=== PATIENT | female | born 1950 | race Hispanic/Latino ===

== ENCOUNTER → 2018-11-11 | Day surgery (SDC) | payer MEDICARE ==
[~2018-11-11] MED LIST: FENTANYL CITRATE/PF 100MCG/2 ML INJ ONE; FLUOXETINE HCL20 M1 PO; FUROSEMIDE40 MG PO; LIDOCAINE HCL 2% LOCAL INJ 5 ML SDV VIAL INJ ONE; METOPROLOL TART25 MG PO; OMEPRAZOLE40 MG PO; PROPOFOL IV EMULSION 10 MG/ML 20 ML VIAL ONE
--- OUTSIDE RECORDS SUMMARY | 2018-11-11 09:50 | XMS REPORT | Clinical Summary ---
Author Author Anibal [facility] Organization [facility] Address Unknown Phone Unavailable Care Team Providers Care Pulmonary Disease Specialist Name Role Phone Michael Morales MD PCP Allergies No Known Allergies Medications End Date Status Medication Sig Dispensed Refills Start Date Active candesartan (ATACAND) 16 Take 16 mg by 0 MG tablet mouth daily. Active furosemide (LASIX) 40 mg Take 40 mg by 0 tablet mouth daily. Active ergocalciferol (VITAMIN Take 50,000 0 D2) 50,000 unit capsule Units by mouth. Active FLUoxetine (PROzac) 20 MG Take 20 mg by 0 capsule mouth daily. 06/20/2018 Discontinued benzonatate (TESSALON) Take 100 mg 0 100 MG capsule by mouth 3 (three) times a day. 06/20/2018 Discontinued nitrofurantoin Take 100 mg 0 (MACRODANTIN) 100 MG by mouth 2 capsule (two) times a day. 06/20/2018 Discontinued metoprolol tartrate Take 50 mg by 0 (LOPRESSOR) 50 mg tablet mouth 2 (two) times a day. 07/20/2018 metoprolol tartrate Take 1 tablet 60 tablet 0 (LOPRESSOR) 25 mg tablet (25 mg total) 9 by mouth 2 (two) times a day for 30 days. 06/25/2018 methylPREDNISolone follow 21 tablet 0 (MEDROL, KWABENA,) 4 mg package 9 tablet directions 07/20/2018 omeprazole 20 mg Take 20 mg by 30 each 5 tablet,delayed release mouth daily 9 (/EC) for 30 days. 07/20/2018 metFORMIN (GLUCOPHAGE) Take 1 tablet 60 tablet 0 500 mg tablet (500 mg 9 total) by mouth 2 (two) times a day with meals for 30 days. 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 UTI (urinary tract infection) 06/13/2018 Encounters Care Team Description Date Type Specialty Eva Alaniz MD Asbury, James F., MD Urinary tract infection without hematuria, site unspecified (Primary Dx); Parainfluenza virus infection; Anemia, unspecified type; Peripheral edema 06/13/2018 [facility] General Internal Medicine - Encounter 06/20/2018 after 11/10/2017 Social History Date Tobacco Use Types Packs/Day Years Used Never Smoker Smokeless Tobacco: Never Used Alcohol Use Drinks/Week oz/Week Comments No Alcohol Habits Answer Date Recorded How often do you have a drink containing alcohol? Never 06/14/2018 How many drinks containing alcohol do you have on Not asked a typical day when you are drinking? How often do you have six or more drinks on one Not asked occasion? Sex Assigned at Date Recorded Not on file Industry Job Start Date Occupation Not on file Not on file Not on file Travel End Travel History Travel Start No recent travel history available. Last Filed Vital Signs Time Taken Vital Sign Reading 06/20/2018 4:22 PM [facility] Blood Pressure 137/64 06/20/2018 4:22 PM [facility] Pulse 77 06/20/2018 4:22 PM [facility] Temperature 35.8 C (96.5 F) 06/20/2018 4:22 PM [facility] Respiratory Rate 16 06/20/2018 4:22 PM [facility] Oxygen Saturation 95% - Inhaled Oxygen - Concentration 06/16/2018 1:03 PM [facility] Weight 110 kg (242 lb 9.6 oz) - Height - - Body Mass Index - Plan of Treatment Health Maintenance Due Date Last Done Comments BREAST CANCER SCREENING 10/30/1999 COLONOSCOPY SCREENING 10/30/1999 SHINGLES VACCINES (#1) 10/30/1999 65+ PNEUMOCOCCAL VACCINE 2014 (1 of 2 - PCV13) INFLUENZA VACCINE 11/25/2018 Procedures Comments Procedure Name Priority Date/Time Associated Diagnosis POC GLUCOSE Routine 06/20/2018 1:24 PM [facility] POC GLUCOSE Routine 06/20/2018 9:40 AM [facility] POC GLUCOSE Routine 06/19/2018 9:49 PM [facility] POC GLUCOSE Routine 06/19/2018 1:31 PM [facility] XR HIP 2-3 VIEWS LEFT Routine 06/19/2018 11:18 AM [facility] POC GLUCOSE Routine 06/19/2018 8:13 AM [facility] POC GLUCOSE Routine 06/18/2018 9:52 PM [facility] POC GLUCOSE Routine 06/18/2018 5:[address] [facility] [address] ABDOMEN PELVIS W WO Routine 06/18/2018 CONTRAST 4:04 PM [facility] POC GLUCOSE Routine 06/18/2018 1:08 PM [facility] US DUPLEX VENOUS LOWER Routine 06/18/2018 EXTREMITY REFLUX 10:22 AM [facility] BILATERAL POC GLUCOSE Routine 06/18/2018 8:28 AM [facility] ESTIMATED GFR Routine 06/18/2018 4:00 AM [facility] BASIC METABOLIC PANEL Routine 06/18/2018 4:00 AM [facility] HC COMPLETE BLD COUNT Routine 06/18/2018 W/AUTO DIFF 4:00 AM [facility] POC GLUCOSE Routine 06/17/2018 9:12 PM [facility] POC GLUCOSE Routine 06/17/2018 5:17 PM [facility] NM MYOCARDIAL PERFUSION Routine 06/17/2018 STRESS REST 2 DAY 2:44 PM [facility] CV STRESS TEST NUCLEAR Routine 06/17/2018 CARDIO 2:00 PM [facility] POC GLUCOSE Routine 06/17/2018 12:19 PM [facility] POC GLUCOSE Routine 06/17/2018 8:16 AM [facility] ESTIMATED GFR Routine 06/17/2018 4:00 AM [facility] PHOSPHORUS LEVEL Routine 06/17/2018 4:00 AM [facility] MAGNESIUM LEVEL Routine 06/17/2018 4:00 AM [facility] BASIC METABOLIC PANEL Routine 06/17/2018 4:00 AM [facility] POC GLUCOSE Routine 06/16/2018 5:07 PM [facility] ECHOCARDIOGRAM 2D Routine 06/16/2018 COMPLETE W MMODE SPECTRAL 2:30 PM [facility] COLOR DOPPLER ([id number]) US RENAL Routine 06/16/2018 10:33 AM [facility] HEMOGLOBIN A1C Routine 06/16/2018 9:00 AM [facility] ESTIMATED GFR Routine 06/16/2018 8:49 AM [facility] BASIC METABOLIC PANEL Routine 06/16/2018 8:49 AM [facility] CORTISOL LEVEL, AM Routine 06/16/2018 3:45 AM [facility] CYCLIC CITRULLINATED Routine 06/15/2018 PEPTIDE AB, IGG 6:00 PM [facility] SEDIMENTATION RATE Routine 06/15/2018 6:00 PM [facility] RHEUMATOID FACTOR Routine 06/15/2018 6:00 PM [facility] C-REACTIVE PROTEIN Routine 06/15/2018 6:00 PM [facility] SADIE Routine 06/15/2018 6:00 PM [facility] RETICULOCYTE COUNT Routine 06/15/2018 5:00 AM [facility] B NATRIURETIC PEPTIDE Routine 06/15/2018 5:00 AM [facility] ESTIMATED GFR Routine 06/15/2018 4:00 AM [facility] FOLATE LEVEL Routine 06/15/2018 4:00 AM [facility] VITAMIN B12 LEVEL Routine 06/15/2018 4:00 AM [facility] TOTAL IRON BINDING Routine 06/15/2018 CAPACITY 4:00 AM [facility] FERRITIN LEVEL Routine 06/15/2018 4:00 AM [facility] T4, FREE Routine 06/15/2018 4:00 AM [facility] PHOSPHORUS LEVEL Routine 06/15/2018 4:00 AM [facility] MAGNESIUM LEVEL Routine 06/15/2018 4:00 AM [facility] BASIC METABOLIC PANEL Routine 06/15/2018 4:00 AM [facility] THYROID STIMULATING Routine 06/15/2018 HORMONE 4:00 AM [facility] ESTIMATED GFR Routine 06/14/2018 3:43 AM [facility] PHOSPHORUS LEVEL Routine 06/14/2018 3:43 AM [facility] MAGNESIUM LEVEL Routine 06/14/2018 3:43 AM [facility] HC COMPLETE BLD COUNT Routine 06/14/2018 W/AUTO DIFF 3:43 AM [facility] BASIC METABOLIC PANEL Routine 06/14/2018 3:43 AM [facility] B NATRIURETIC PEPTIDE Routine 06/14/2018 3:43 AM [facility] TROPONIN Timed 06/13/2018 9:45 PM [facility] LACTIC ACID LEVEL, SEPSIS Timed 06/13/2018 - NOW AND REPEAT 2X EVERY 9:45 PM [facility] 3 HOURS GRAM STAIN STAT 06/13/2018 7:20 PM [facility] URINE CULTURE STAT 06/13/2018 7:20 PM [facility] ECG 12-LEAD STAT 06/13/2018 6:53 PM [facility] XR CHEST 1 VW STAT 06/13/2018 6:49 PM [facility] ESTIMATED GFR STAT 06/13/2018 6:30 PM [facility] PARTIAL THROMBOPLASTIN STAT 06/13/2018 TIME (PTT) 6:30 PM [facility] PROTHROMBIN TIME WITH INR STAT 06/13/2018 6:30 PM [facility] URINALYSIS SCREEN AND STAT 06/13/2018 MICROSCOPY, WITH REFLEX 6:30 PM [facility] TO CULTURE B NATRIURETIC PEPTIDE STAT 06/13/2018 6:30 PM [facility] TROPONIN Timed 06/13/2018 6:30 PM [facility] TROPONIN STAT 06/13/2018 6:30 PM [facility] LACTIC ACID LEVEL, SEPSIS Timed 06/13/2018 - NOW AND REPEAT 2X EVERY 6:30 PM [facility] 3 HOURS LACTIC ACID LEVEL, SEPSIS STAT 06/13/2018 - NOW AND REPEAT 2X EVERY 6:30 PM [facility] 3 HOURS MAGNESIUM LEVEL STAT 06/13/2018 6:30 PM [facility] PHOSPHORUS LEVEL STAT 06/13/2018 6:30 PM [facility] COMPREHENSIVE METABOLIC STAT 06/13/2018 PANEL 6:30 PM [facility] HC COMPLETE BLD COUNT STAT 06/13/2018 W/AUTO DIFF 6:30 PM [facility] RESPIRATORY PATHOGEN Routine 06/13/2018 PANEL 6:30 PM [facility] ECG ED PRELIMINARY Routine 06/13/2018 INTERPRETATION 5:52 PM [facility] XR CHEST 1 VW PORTABLE STAT 06/13/2018 5:26 PM [facility] after 11/10/2017 Results * POC glucose (06/20/2018 1:24 PM [facility]) Only the most recent of 14 results within the time period is included. POC glucose 181 (H) 65 - 99 mg/dL [facility] Comment: [facility] Notified RN HOSPITAL Meter ID: [id number] Offset Printer: Asher Castillo Specimen Performing Organization Address City/State/Zipcode Phone Number [facility] DEPARTMENT OF [address] [place] [address] PATHOLOGY AND GENOMIC MEDICINE [facility] [address] [place], [place] [id number] HOSPITAL * XR Hip 2-3 View Left (06/19/2018 11:18 AM [facility]) Specimen Narrative Performed At Study:XR HIP 2-3 VIEWS LEFT [facility] History:Hip painchronicinitial exam COMPARISON:None. IMPRESSION: 2 views of the left hip. Mineralization is normal. No acute fracture or dislocation. The joint space is maintained but with some mild spurring from degenerative change. Overlying soft tissues unremarkable. [id number] Procedure Note Hm Interface, Radiology Results Incoming - 06/19/2018 11:58 AM [facility] Study:XR HIP 2-3 VIEWS LEFT History:Hip pain chronic initial exam COMPARISON:None. IMPRESSION: 2 views of the left hip. Mineralization is normal. No acute fracture or dislocation. The joint space is maintained but with some mild spurring from degenerative change. Overlying soft tissues unremarkable. [id number] Performing Organization Address City/State/Zipcode Phone Number [facility] [address] [place] [address] * CT Abdomen Pelvis W Wo Contrast (06/18/2018 4:04 PM [facility]) Specimen Narrative Performed At EXAMINATION:CT ABDOMEN PELVIS W WO CONTRAST [facility] CLINICAL HISTORY:renal mass on US COMPARISON:US renal dated 06/16/2018 TECHNIQUE:CT of the abdomen and pelvis with and without intravenous contrast. CT imaging was performed with iterative reconstruction techniques and/or automated exposure control to reduce radiation dose. FINDINGS: LOWER THORAX:The visualized heart and pericardium appear unremarkable. There is bibasilar subsegmental atelectasis/scarring, left greater than right.There is no pleural effusion. HEPATOBILIARY:The liver appears unremarkable. There is a large gallstone within the gallbladder lumen without evidence of acute cholecystitis. There is no biliary ductal dilatation. SPLEEN:No splenomegaly. PANCREAS:No focal masses or ductal dilation. ADRENALS:No adrenal nodules. KIDNEYS:There is a 1.3 x 1.1 cm enhancing mass arising from the anterosuperior cortex of the right kidney. It demonstrates an internal attenuation of approximately 23 Hounsfield units on noncontrast images, which increases to approximately 72 Hounsfield units on the medullary phase and 57 Hounsfield units on the delayed phase. No additional There is no nephroureterolithiasis.There is no hydroureter/hydronephrosis. There is symmetric excretion of contrast on the delayed phase images. GI TRACT:There is a large, mixed sliding-type and parapharyngeal hernia with the majority of the stomach lying within the thorax. The visualized portions of the bowel demonstrate no distention, wall thickening, or mural pneumatosis. PERITONEUM/RETROPERITONEUM:There is no free intraperitoneal air. There is no free fluid or focal drainable collection. LYMPHATIC: There is no lymphadenopathy. VESSELS: There is mild atherosclerotic calcification of the arterial vasculature. There is no evidence of aneurysm or dissection. The celiac trunk and its main branches are patent. 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 The inferior mesenteric artery appears patent. The bilateral renal arteries appear patent. BONES AND SOFT TISSUES:There is demineralization and degenerative change of the visualized skeleton, with note made of Schmorl's nodes which erode into the superior endplates of the T12 and L1 vertebral bodies. There is no definite acute or suspicious osseous abnormality. There is a small fat-containing periumbilical hernia. IMPRESSION: Right renal mass (1.3 x 1.1 cm), concerning for renal cell carcinoma. Large hiatal hernia. [facility]-[id number] Procedure Note [facility], Radiology Results Incoming - 06/18/2018 4:58 PM [facility] EXAMINATION: CT ABDOMEN PELVIS W WO CONTRAST CLINICAL HISTORY: renal mass on US COMPARISON: US renal dated 06/16/2018 TECHNIQUE: CT of the abdomen and pelvis with and without intravenous contrast. CT imaging was performed with iterative reconstruction techniques and/or automated exposure control to reduce radiation dose. FINDINGS: LOWER THORAX: The visualized heart and pericardium appear unremarkable. There is bibasilar subsegmental atelectasis/scarring, left greater than right. There is no pleural effusion. HEPATOBILIARY: The liver appears unremarkable. There is a large gallstone within the gallbladder lumen without evidence of acute cholecystitis. There is no biliary ductal dilatation. SPLEEN: No splenomegaly. PANCREAS: No focal masses or ductal dilation. ADRENALS: No adrenal nodules. KIDNEYS: There is a 1.3 x 1.1 cm enhancing mass arising from the anterosuperior cortex of the right kidney. It demonstrates an internal attenuation of approximately 23 Hounsfield units on noncontrast images, which increases to approximately 72 Hounsfield units on the medullary phase and 57 Hounsfield units on the delayed phase. No additional There is no nephroureterolithiasis. There is no hydroureter/hydronephrosis. There is symmetric excretion of contrast on the delayed phase images. GI TRACT: There is a large, mixed sliding-type and parapharyngeal hernia with the majority of the stomach lying within the thorax. The visualized portions of the bowel demonstrate no distention, wall thickening, or mural pneumatosis. PERITONEUM/RETROPERITONEUM: There is no free intraperitoneal air. There is no free fluid or focal drainable collection. LYMPHATIC: There is no lymphadenopathy. VESSELS: There is mild atherosclerotic calcification of the arterial vasculature. There is no evidence of aneurysm or dissection. The celiac trunk and its main branches are patent. 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 The inferior mesenteric artery appears patent. The bilateral renal arteries appear patent. BONES AND SOFT TISSUES: There is demineralization and degenerative change of the visualized skeleton, with note made of Schmorl's nodes which erode into the superior endplates of the T12 and L1 vertebral bodies. There is no definite acute or suspicious osseous abnormality. There is a small fat-containing periumbilical hernia. IMPRESSION: Right renal mass (1.3 x 1.1 cm), concerning for renal cell carcinoma. Large hiatal hernia. [facility]-[id number] Performing Organization Address City/State/Zipcode Phone Number [facility] [address] [place] [address] * Us duplex venous lower extremity reflux (06/18/2018 10:22 AM [facility]) Specimen Narrative Performed At [facility] Vascular Ultrasound Laboratory Lower Extremity Venous Report [id number] [place] [address] Pat.Name:Elieesr GLEASON.ID:[id number] .Date: 06/18/2018 Refer.MD:LILLIE DAN MD Exam Time: 9:34:00 AMStudy Type:LE Venous Weight:242lb DOBAge:1950,67Y Sex: FEMALESonogrphr: Elvia Chery RVT Pat. Stat.:Inpatient Room:[address] TapeVol: JPercy, CPT - 4: [address] Echo Event ID:[id number] Order ID:[id number] Reason for Study:Evaluation for venous insufficiency. LE swelling and pain. Procedures:Colorflow, Grayscale/2D, Pulsed wave Doppler Race:C SUMMARY: * Normal Reflux Criteria:< 0.5 seconds * Abnormal Reflux Criteria:> or equal to 0.5 seconds DUPLEX SCAN OBSERVATIONS Deep VeinsSuperficial Veins RightLeft RightLeft GSV (prox) NormalNormal CFV Normal Normal (above knee) Femoral Normal Normal GSV (dist) Normal Normal Profunda Normal Normal (below knee) Popliteal Normal Normal PT (prox) Normal NormalSSV Normal Normal PT (dist) Normal Normal Peroneal Normal Normal Gastrocs Normal Normal RIGHT:There is normal compressibility with no evidence of echogenic material noted within the lumen of the visualized veins. Colorflow and Doppler signals are normal. LEFT: There is normal compressibility with no evidence of echogenic material noted within the lumen of the visualized veins. Colorflow and Doppler signals are normal. PRELIMINARY FINDINGS 1. Normal venous duplex exam of the visualized veins. 2. No evidence of reflux in bilateral lower extremities. 3. See diagram for measurements. PHYSICIAN INTERPRETATION 1. Venous examination of the both lower extremities demonstrated no evidence of venous thrombosis in the visualized veins.2. Normal compressibility and augmentation of all veins visualized. 3. No evidence of venous reflux, Bilateral. MEASUREMENTS: REFLUX Right SF [place] SF [place] G0.64 cm Left SF [place] G0.63 cm Right Thigh Prox Thigh Prox GSV 0.39 cm Left Thigh Prox Thigh Prox GSV 0.36 cm Right Thigh Mid Thigh Mid GSV D0.38 cm Left Thigh Mid Thigh Mid GSV D0.26 cm Right Thigh Dist Thigh Dist GSV 0.51 cm Left Thigh Dist Thigh Dist GSV 0.51 cm Right Knee Knee GSV Diam 0.56 cm Left Knee Knee GSV Diam 0.39 cm Right Calf Prox Calf Prox GSV D0.34 cm Left Calf Prox Calf Prox GSV D0.22 cm Right Calf Mid Calf Mid GSV Di0.35 cm Left Calf Mid Calf Mid GSV Di0.33 cm Right Calf Dist Calf Dist GSV D0.39 cm Left Calf Dist Calf Dist GSV D0.35 cm Right Prox Prox SSV Diam 0.25 cm Left Prox Prox SSV Diam 0.11 cm Signed 06/18/2018 02:00 PM Sandro Ennis MD, FACS, RPVI Procedure Note Interface, Radiology Results In - 06/18/2018 2:01 PM [facility] Vascular Ultrasound Laboratory Lower Extremity Venous Report [id number] [place] [address] Pat.Name: JAKY GLEASON Pat.ID: [id number] .Date: 06/18/2018 Refer.MD: LILLIE DAN MD Exam Time: 9:34:00 AM Study Type:LE Venous Weight: 242lb Age: 7 1950,67Y Sex: FEMALE Sonogrphr: Elvia Chery RVT Pat. Stat.:Inpatient Room: [address] Vol: JJ, CPT - 4: 48573 Echo Event ID:[id number] Order ID: [id number] Reason for Study:Evaluation for venous insufficiency. LE swelling and pain. Procedures:Colorflow, Grayscale/2D, Pulsed wave Doppler Race: C SUMMARY: * Normal Reflux Criteria: < 0.5 seconds * Abnormal Reflux Criteria: > or equal to 0.5 seconds DUPLEX SCAN OBSERVATIONS Deep Veins Superficial Veins Right Left Right Left GSV (prox) Normal Normal CFV Normal Normal (above knee) Femoral Normal Normal GSV (dist) Normal Normal Profunda Normal Normal (below knee) Popliteal Normal Normal PT (prox) Normal Normal SSV Normal Normal PT (dist) Normal Normal Peroneal Normal Normal Gastrocs Normal Normal RIGHT:There is normal compressibility with no evidence of echogenic material noted within the lumen of the visualized veins. Colorflow and Doppler signals are normal. LEFT: There is normal compressibility with no evidence of echogenic material noted within the lumen of the visualized veins. Colorflow and Doppler signals are normal. PRELIMINARY FINDINGS 1. Normal venous duplex exam of the visualized veins. 2. No evidence of reflux in bilateral lower extremities. 3. See diagram for measurements. PHYSICIAN INTERPRETATION 1. Venous examination of the both lower extremities demonstrated no evidence of venous thrombosis in the visualized veins. 2. Normal compressibility and augmentation of all veins visualized. 3. No evidence of venous reflux, Bilateral. MEASUREMENTS: REFLUX Right SF [place] SF [place] G 0.64 cm Left SF [place] SF [place] G 0.63 cm Right Thigh Prox Thigh Prox GSV 0.39 cm Left Thigh Prox Thigh Prox GSV 0.36 cm Right Thigh Mid Thigh Mid GSV D 0.38 cm Left Thigh Mid Thigh Mid GSV D 0.26 cm Right Thigh Dist Thigh Dist GSV 0.51 cm Left Thigh Dist Thigh Dist GSV 0.51 cm Right Knee Knee GSV Diam 0.56 cm Left Knee Knee GSV Diam 0.39 cm Right Calf Prox Calf Prox GSV D 0.34 cm Left Calf Prox Calf Prox GSV D 0.22 cm Right Calf Mid Calf Mid GSV Di 0.35 cm Left Calf Mid Calf Mid GSV Di 0.33 cm Right Calf Dist Calf Dist GSV D 0.39 cm Left Calf Dist Calf Dist GSV D 0.35 cm Right Prox Prox SSV Diam 0.25 cm Left Prox Prox SSV Diam 0.11 cm Signed 06/18/2018 02:00 PM Sandro Ennis MD, FACS, RPVI Performing Organization Address City/State/Zipcode Phone Number [facility] [address] [place] [address] * Estimated GFR (06/18/2018 4:00 AM [facility]) Only the most recent of 6 results within the time period is included. [facility] Estimated GFR >=90 mL/min/1.73 m2 [facility] Comment: [facility] rpretation G1 >=90 Normal or high G2 60-89Mildly decreased H5e30-99 Mildly to moderately decreased Y8l54-66 Moderately to severely decreased G4 15-29Severely decreased G5 <15Kidney failure The eGFR was calculated using the Chronic Kidney Disease Epidemiology Collaboration (CKD-EPI) equation. Interpretation is based on recommendations of the National Kidney Foundation-Kidney Disease Outcomes Quality Initiative (NKF-KDOQI) published in 2014. Specimen Plasma specimen Performing Organization Address City/[facility]/Zipcode Phone Number [facility] DEPARTMENT OF [address] [place] [id number] PATHOLOGY AND GENOMIC MEDICINE [address] * CBC with platelet and differential (06/18/2018 4:00 AM [facility]) Only the most recent of 3 results within the time period is included. WBC 4.75 4.50 - 11.00 k/uL [facility] RBC 4.02 (L) 4.20 - 5.50 m/uL [facility] HGB 11.1 (L) 12.0 - 16.0 g/dL [facility] HCT 36.6 (L) 37.0 - 47.0 % [facility] MCV 91.0 82.0 - 100.0 fL [facility] MCH 27.6 27.0 - 34.0 pg [facility] MCHC 30.3 (L) 31.0 - 37.0 g/dL [facility] RDW - SD 43.7 37.0 - 55.0 fL [facility] MPV 10.9 8.8 - 13.2 fL [facility] Platelet count 235 150 - 400 k/uL [facility] Nucleated RBC 0.00 /100 WBC [facility] Neutrophils 54.9 39.0 - 69.0 % [facility] Lymphocytes 29.1 25.0 - 45.0 % [facility] Monocytes 13.9 (H) 0.0 - 10.0 % [facility] Eosinophils 1.3 0.0 - 5.0 % [facility] Basophils 0.8 0.0 - 1.0 % [facility] Immature 0.0Comment: "Immature 0.0 - 1.0 % [facility] granulocytes granulocytes" (promyelocytes, [facility] myelocytes, metamyelocytes) HOSPITAL Specimen Blood Performing Organization Address City/[facility]/Zipcode Phone Number [facility] DEPARTMENT OF [address] [place] [id number] PATHOLOGY AND GENOMIC MEDICINE [address] * Basic metabolic panel (06/18/2018 4:00 AM [facility]) Only the most recent of 5 results within the time period is included. Sodium 141 135 - 148 mEq/L [facility] Potassium 4.1 3.5 - 5.0 mEq/L [facility] Chloride 104 98 - 112 mEq/L [facility] CO2 26 24 - 31 mEq/L [facility] Anion gap 11@ANIO 7 - 15 mEq/L [facility] BUN 6 (L) 8 - 23 mg/dL [facility] Creatinine 0.39 (L) 0.50 - 0.90 mg/dL [facility] Glucose 137 (H) 65 - 99 mg/dL [facility] Calcium 9.8 8.8 - 10.2 mg/dL [facility] Specimen Plasma specimen Performing Organization Address City/State/Zipcode Phone Number [facility] DEPARTMENT OF [address] [place] [address] PATHOLOGY AND GENOMIC MEDICINE [address] * Nm myocardial perfusion (06/17/2018 2:44 PM [facility]) Specimen Narrative Performed At [facility] Nuclear Cardiology and Cardiac CT [address] [place] [address] Myocardial Perfusion Imaging Report Stress ECG tracings are available in [employer], [employer] and [employer] All ECG interpretations are included in this report Pat.Name:Elieser GLEASON.ID:[id number] .Date: 06/17/2018 Refer.MD:LILLIE DAN MD Exam Time: 2:44:00 PM Study Type:Myocardial Perfusion Imaging Height:63inBSA: 2.1 m2 DOBAge:1950,67YSex: FEMALE BP:122/59HR: 85 bpm Nuclear Tech:JAYLA Maya, JORGE(N) Pat. Stat.:Inpatient Room:[id number] Event ID:[id number] Order ID:[id number] Reason for Study:CAD Risk, Intermediate, Asymptomatic Procedures:High Dose Stress Only Risk Factors:Diabetes, Hypertension, Obesity Clinical Symptoms:Regadenoson Physical Exam:S1, S2 SUMMARY: SCINTIGRAPHIC RESULTS Perfusion Defect Size (% LV) 0 % Total 0 % Ischemia 0 % Scar Left Ventricular Perfusion Results There is normal tracer distribution throughout the myocardium during stress. Gated SPECT Results The post-stress left ventricular ejection fraction is >80 % with normal regional wall motion and left ventricular thickening.Left ventricular end-diastolic volume is 71ml; end-systolic volume is6 ml. The left ventricle is of normal size at stress.The right ventricle is of normal size with normal wall motion. Conclusion Normal regadenoson Tc-99m tetrofosmin myocardial perfusion study. The left ventricular ejection fraction is normal. Comments Patients with a normal stress myocardial perfusion study have a low (< 1%) annual risk of cardiac or nonfatal myocardial infarction. Study Quality/Artifacts The study quality is good. Comparison to Previous Study None available. STRESS: Baseline Vital Signs:Intervention: Regadenoson 0.4mg/5ml IV over 10 seconds followed by radiotracer injection and 5ml saline flush HR:85 BP:122/59 Stress Test Results: Target HR: 129 Symptoms and Complications: Terminated: As per Regadenoson protocol Symptoms:Shortness of breath Signed 06/17/2018 04:21 PM Rafael Morris MD Procedure Note Interface, Radiology Results In - 06/17/2018 4:21 PM [facility] Nuclear Cardiology and Cardiac CT [address] [address] Myocardial Perfusion Imaging Report Stress ECG tracings are available in [employer], [employer] and [employer] All ECG interpretations are included in this report Pat.Name: JAKY GLEASON Shannon.ID: [id number] .Date: 06/17/2018 Refer.MD: LILLIE DAN MD Exam Time: 2:44:00 PM Study Type:Myocardial Perfusion Imaging Height: 63in BSA: 2.1 m2 Age: 7 1950,67Y Sex: FEMALE BP: 122/59 HR: 85 bpm Nuclear Tech:JAYLA Maya, JORGE(N) Shannon. Stat.:Inpatient Room: [facility] Nuclear Event ID:[id number] Order ID: [id number] Reason for Study:CAD Risk, Intermediate, Asymptomatic Procedures:High Dose Stress Only Risk Factors:Diabetes, Hypertension, Obesity Clinical Symptoms:Regadenoson Physical Exam:S1, S2 SUMMARY: SCINTIGRAPHIC RESULTS Perfusion Defect Size (% LV) 0 % Total 0 % Ischemia 0 % Scar Left Ventricular Perfusion Results There is normal tracer distribution throughout the myocardium during stress. Gated SPECT Results The post-stress left ventricular ejection fraction is >80 % with normal regional wall motion and left ventricular thickening. Left ventricular end-diastolic volume is 71ml; end-systolic volume is 6 ml. The left ventricle is of normal size at stress. The right ventricle is of normal size with normal wall motion. Conclusion Normal regadenoson Tc-99m tetrofosmin myocardial perfusion study. The left ventricular ejection fraction is normal. Comments Patients with a normal stress myocardial perfusion study have a low (< 1%) annual risk of cardiac or nonfatal myocardial infarction. Study Quality/Artifacts The study quality is good. Comparison to Previous Study None available. STRESS: Baseline Vital Signs: Intervention: Regadenoson 0.4mg/5ml IV over 10 seconds followed by radiotracer injection and 5ml saline flush HR: 85 BP: 122/59 Stress Test Results: Target HR: 129 Symptoms and Complications: Terminated: As per Regadenoson protocol Symptoms: Shortness of breath Signed 06/17/2018 04:21 PM Rafael Morris MD Performing Organization Address [facility]/Zipcode Phone Number [facility] [address] [place] [address] * Cv stress test (06/17/2018 2:00 PM [facility]) Resting HR 87 [facility] Resting BP 122 [facility] Peak MET 1.0 [facility]USE Achieved Protocol Name REGSTEVE [facility] MUSE Time in 00:01:00 [facility] MUSE Exercise Phase Max Systolic BP 147 [facility] MUSE Max Diastolic 74 [facility] MUSE BP Max Heart Rate 100 [facility] MUSE Max Predicted 152 [facility] MUSE Heart Rate Target HR (220 - Age)*100% [facility] MUSE Formula Test Indication chest pain [facility] MUSE Arrhy During Ex [facility] ECG Interp [facility] MUSE Before EX ECG Interp [facility] MUSE During Ex Ex Summary [facility] MUSE Comment Overall HR [facility] Response to Exercise Overall BP [facility] M[facility] Response To Exercise Reason for [facility] MUSE Termination Stress Test -Waveform interpreted in [facility] MUSE Impression report associated with image study. No interpretation is provided as part of this Stress ECG report.-Electronically Signed By Hiral UREÑA, Mundo ([id number]), publications editor Bianca Reagan ([id number]) on 06/17/2018 4:09:34 PM Specimen Narrative Performed At Performing Organization Address [facility] Phone Number [facility] [address] [place] [address] * Phosphorus level (06/17/2018 4:00 AM [facility]) Only the most recent of 4 results within the time period is included. Phosphorus 2.9 2.4 - 4.5 mg/dL [facility] Specimen Plasma specimen Performing Organization Address [facility]/Zipcode Phone Number [address] [address] PATHOLOGY AND GENOMIC MEDICINE [address] * Magnesium level (06/17/2018 4:00 AM [facility]) Only the most recent of 4 results within the time period is included. Magnesium 1.7 1.6 - 2.4 mg/dL [facility] Specimen Plasma specimen Performing Organization Address City/State/Zipcode Phone Number [facility] DEPARTMENT OF [address] [place] [address] PATHOLOGY AND GENOMIC MEDICINE [facility] [address] [place] [address] * Echocardiogram complete w contrast and 3D if needed (06/16/2018 2:30 PM [facility]) Specimen Narrative Performed At [facility] Echocardiography Report [address] [facility], [place] [address] Pat.Name:Elieser GLEASON.ID:[id number] .Date: 06/16/2018 Refer.MD:RICH YUEN MD Exam Time: 1:38:00 PMStudy Type:Routine Echo Height:63inWeight:190lb BSA: 1.89 m2 DOBAge:1950,67Y Sex: FEMALEBP:139/66 HR:90 bpmSonogrphr: ALESHIA Rodríguez Pat. Stat.:Inpatient Room:[facility] Study Status:Final Echo Event ID:[id number] Order ID:[id number] Reason for Study:Chf with low ejection fraction Procedures:2D Echo, Colorflow Doppler, Strain, Portable Race:C SUMMARY: LV EF is normal. Estimated EF is 65-69%. High cardiac output. LA volume is severely enlarged. Mild tricuspid regurgitation. Estimated PA systolic pressure is 32 mmHg, assuming a mean RAP of 5 mmHg. FINDINGS: LV: LV size is normal. LV EF is normal. Overall wall motion is normal.Estimated EF is 65-69% Normal GLS at -22% RV: RV size is normal. RV systolic function is normal. LA: LA volume is severely enlarged. RA: RA volume is enlarged. AO: Aortic root diameter is normal. SHELDON: No pericardial effusion. AV: No structural AV abnormalities noted. MV: Dilated annulus A trace of mitral regurgitation. PV: No structural PV abnormalities noted. TV: No structural TV abnormalities noted. Mild tricuspid regurgitation Rowe: LV relaxation is reduced, appropriate for age. LV filling pressureis normal. Other:Estimated PA systolic pressure is 32 mmHg, assuming a mean RAPof 5 mmHg. MEASUREMENTS: 2D Parasternal [place] LVOT 2.2 cmLA Ds2.9 cm LVIDd3.9 cmIndex2.1 cm/m Ao An2.4 cm LVIDs2.4 cmAo Rtd 3.3 cm Index1.8 cm/m LV%fs 39.8 % LV Vqpt657.9 g(87-129) IVSd 1.1 cmLVM Index 71.9 g/m2 LVPWd1 cmRWT0.5 LA Sng Plane LA Area 31.1 cm2(8.8-23.4) LA Vol 119.8 ml Index63.4 ml/m LA LngAx 6.6 cm DOPPLER LVOT Stroke Vol LVOT 2.2 cmLVOT CO8 l/min LVOT TVI25.1 cmLVOT CI4.2 l/m/m2 LVOT Tm297 nytrBA30 bpm LVOT SV 95.4 ml Signed 06/16/2018 03:10 PM Silvano Kent MD Procedure Note Interface, Radiology Results In - 06/16/2018 3:11 PM [facility] Echocardiography Report [address] [place] [address], [address]Name: JAKY GLEASON.ID: [id number] .Date: 06/16/2018 Refer.MD: RICH YUEN MD Exam Time: 1:38:00 PM Study Type:Routine Echo Height: 63in Weight: 190lb BSA: 1.89 m2 Age: 7 1950,67Y Sex: FEMALE BP: 139/66 HR: 90 bpm Sonogrphr: Mackenzie Sim, [facility] Pat. Stat.:Inpatient Room: J812 Study Status:Final Echo Event ID:[id number] Order ID: [id number] Reason for Study:Chf with low ejection fraction Procedures:2D Echo, Colorflow Doppler, Strain, Portable Race: C SUMMARY: LV EF is normal. Estimated EF is 65-69%. High cardiac output. LA volume is severely enlarged. Mild tricuspid regurgitation. Estimated PA systolic pressure is 32 mmHg, assuming a mean RAP of 5 mmHg. FINDINGS: LV: LV size is normal. LV EF is normal. Overall wall motion is normal. Estimated EF is 65-69% Normal GLS at -22% RV: RV size is normal. RV systolic function is normal. LA: LA volume is severely enlarged. RA: RA volume is enlarged. AO: Aortic root diameter is normal. SHELDON: No pericardial effusion. AV: No structural AV abnormalities noted. MV: Dilated annulus A trace of mitral regurgitation. PV: No structural PV abnormalities noted. TV: No structural TV abnormalities noted. Mild tricuspid regurgitation Rowe: LV relaxation is reduced, appropriate for age. LV filling pressure is normal. Other: Estimated PA systolic pressure is 32 mmHg, assuming a mean RAP of 5 mmHg. MEASUREMENTS: 2D Parasternal [place] LVOT 2.2 cm LA Ds 2.9 cm LVIDd 3.9 cm Index 2.1 cm/m Ao An 2.4 cm LVIDs 2.4 cm Ao Rtd 3.3 cm Index 1.8 cm/m LV%fs 39.8 % LV Mass 135.9 g (87-129) IVSd 1.1 cm LVM Index 71.9 g/m2 LVPWd 1 cm RWT 0.5 LA Sng Plane LA Area 31.1 cm2 (8.8-23.4) LA Vol 119.8 ml Index 63.4 ml/m LA LngAx 6.6 cm DOPPLER LVOT Stroke Vol LVOT 2.2 cm LVOT CO 8 l/min LVOT TVI 25.1 cm LVOT CI 4.2 l/m/m2 LVOT Tm 297 msec HR 84 bpm LVOT SV 95.4 ml Signed 06/16/2018 03:10 PM Silavno Kent MD Performing Organization Address City/State/Zipcode Phone Number [facility] [address] [place] [address] * US Renal (06/16/2018 10:33 AM [facility]) Specimen Narrative Performed At EXAMINATION:US RENAL RADIANT CLINICAL HISTORY:UTIuncomplicated TECHNIQUE: Sonographic evaluation of the kidneys and bladder was performed with grayscale, color-flow, and spectral analysis. COMPARISON:None. FINDINGS: A 1.6 cm rounded hyperechoic mass is noted within the right kidney. However, no vascularity was detected centrally within this lesion. The kidneys are normal in size and echogenicity. There is no evidence of renal calculi or hydronephrosis. The renal pelves are prominent bilaterally. The right kidney measures 10.7 x 5.0 x 5.3 cm. The left kidney measures 10.5 x 5.5 x 6.0 cm. The urinary bladder is unremarkable. IMPRESSION: Nonspecific 1.6 cm hyperdense mass within the right kidney. This suggestive of a hemorrhagic or proteinaceous cyst given the absence of internal vascularity. However, given its appearance, underlying malignancy is not excluded. Recommend additional imaging with contrast-enhanced CT versus MRI for further evaluation. This may ultimately require tissue diagnosis. [id number] Procedure Note Interface, Radiology Results Incoming - 06/16/2018 1:02 PM [facility] EXAMINATION: US RENAL CLINICAL HISTORY: UTI uncomplicated TECHNIQUE: Sonographic evaluation of the kidneys and bladder was performed with grayscale, color-flow, and spectral analysis. COMPARISON: None. FINDINGS: A 1.6 cm rounded hyperechoic mass is noted within the right kidney. However, no vascularity was detected centrally within this lesion. The kidneys are normal in size and echogenicity. There is no evidence of renal calculi or hydronephrosis. The renal pelves are prominent bilaterally. The right kidney measures 10.7 x 5.0 x 5.3 cm. The left kidney measures 10.5 x 5.5 x 6.0 cm. The urinary bladder is unremarkable. IMPRESSION: Nonspecific 1.6 cm hyperdense mass within the right kidney. This suggestive of a hemorrhagic or proteinaceous cyst given the absence of internal vascularity. However, given its appearance, underlying malignancy is not excluded. Recommend additional imaging with contrast-enhanced CT versus MRI for further evaluation. This may ultimately require tissue diagnosis. [id number] Performing Organization Address [facility] [place] [address] * Hemoglobin A1c (06/16/2018 9:00 AM [facility]) Hemoglobin A1C 6.6 (H) 4.0 - 5.6 % [facility] Comment: [facility] HbA1c cutoffs for diagnosing HOSPITAL diabetes: 4.0% - 5.6%=normal 5.7% - 6.4%=increased risk for diabetes (prediabetes) >=6.5%=diabetes Goals for glycemic control (ADA 2016) < 7.0%Target for non adults with diabetes. More or less stringent targets may be appropriate for individual patients. <7.5% Target for Children and adolescents with type 1 diabetes. Specimen Blood Performing Organization Address [facility] Phone Number [facility] [place] [address] PATHOLOGY AND [facility] MEDICINE [address] * Cortisol level, AM (06/16/2018 3:45 AM [facility]) Cortisol, AM 4 (L) 6 - 18 ug/dL [facility] Specimen Plasma specimen Performing Organization Address [facility] Phone Number [address] [address] PATHOLOGY AND [facility] MEDICINE [address] * Cyclic citrullinated peptide antibody, IgG (06/15/2018 6:00 PM [facility]) [facility] Cyclic <0.5 0.0 - 2.9 U/mL [facility] citrullin Comment: [facility] peptide Ab Anti-cyclic citrullinated HOSPITAL peptide (Anti-CCP) IgG antibodies are present in 60-80% of patients with rhuematoid arthritis (RA) and have specificity of 95-98%. These autoantibodies may be present in the preclinical phase of thedisease, are associated with future RA development and may be useful in predicting increased severity and erosive disease course. Specimen Serum Performing Organization Address City/[facility] Phone Number [facility] [place] [address] PATHOLOGY [address] * Sedimentation rate (06/15/2018 6:00 PM [facility]) [facility] Sedimentation 14 0 - 20 mm/hr [facility] Specimen Blood Performing Organization Address City/[facility] Phone Number [facility] [place] [address] PATHOLOGY [address] * Rheumatoid factor (06/15/2018 6:00 PM [facility]) [facility] Rheumatoid <10 0 - 13 IU/mL [facility] Specimen Plasma specimen Performing Organization Address [facility] Phone Number [facility] [place] [address] PATHOLOGY [address] * C-reactive protein (06/15/2018 6:00 PM [facility]) [facility] CRP 1.19 (H) 0.00 - 0.50 mg/dL [facility] Specimen Plasma specimen Performing Organization Address [facility] Phone Number [facility] [place] [address] PATHOLOGY [address] * SADIE (06/15/2018 6:00 PM [facility]) [facility] SADIE screen Negative Negative [facility] Specimen Blood Performing Organization Address City/[facility]/Zipcode Phone Number [facility] DEPARTMENT OF [address] [place] [address] PATHOLOGY AND [facility] MEDICINE [address] * Reticulocyte count (06/15/2018 5:00 AM [facility]) Retic %, auto 1.9 0.5 - 2.1 % [facility] Retic absolute, 0.0739 0.0210 - 0.1155 m/uL [facility] auto [facility] Specimen Blood Performing Organization Address City/[facility] Phone Number [facility] [place] [address] PATHOLOGY [address] * B natriuretic peptide (06/15/2018 5:00 AM [facility]) Only the most recent of 3 results within the time period is included. Pathologist [facility] BNP 73 0 - 100 pg/mL [facility] Specimen Blood Performing Organization Address City/[facility] Phone Number [facility] DEPARTMENT [address] * Total iron binding capacity (06/15/2018 4:00 AM [facility]) [facility] Iron level 47 37 - 145 ug/dL [facility] Iron binding 333 200 - 400 ug/dL [facility] % Saturation 14.1 (L) 15.0 - 38.0 % [facility] Specimen Plasma specimen Performing Organization Address [facility] Phone Number [facility] [place] [address] PATHOLOGY AND [facility] MEDICINE [address] * Thyroid stimulating hormone (06/15/2018 4:00 AM [facility]) [facility] Signature TSH 2.98 0.27 - 4.20 uIU/mL [facility] Specimen Plasma specimen Performing Organization Address City/[facility] Phone Number [facility] [place] [address] PATHOLOGY AND [facility] MEDICINE [address] * T4, free (06/15/2018 4:00 AM [facility]) T4, free 1.0 0.9 - 1.7 ng/dL [facility] Specimen Plasma specimen Performing Organization Address City/State/Zipcode Phone Number [facility] [place] [address] PATHOLOGY AND [facility] MEDICINE [address] * Folate level (06/15/2018 4:00 AM [facility]) Folate 7.5 4.8 - 24.2 ng/mL [facility] Specimen Serum Performing Organization Address City/[facility]/Zipcode Phone Number [facility] [place] [address] PATHOLOGY AND [facility] MEDICINE [address] * Ferritin level (06/15/2018 4:00 AM [facility]) Ferritin level 43 13 - 150 ng/mL [facility] Specimen Plasma specimen Performing Organization Address [facility] Phone Number [facility] [place] [address] PATHOLOGY AND [facility] MEDICINE [address] * Vitamin B12 level (06/15/2018 4:00 AM [facility]) Vitamin B12 1,723 (H) 211 - 946 pg/mL [facility] Comment: [facility] Significant overlap exists HOSPITAL between normal and deficiency states. However, most patients with deficiencies will have Serum B12 <200 pg/mL. Specimen Serum Performing Organization Address [facility] Phone Number [facility] [place] [address] PATHOLOGY AND [facility] MEDICINE [address] * Lactic acid level, SEPSIS - Now and repeat 2x every 3 hours (06/13/2018 9:45 PM [facility]) Only the most recent of 3 results within the time period is included. Lactic acid 1.7 0.5 - 2.2 mmol/L [facility] Specimen Blood Performing Organization Address [facility]/Zipcode Phone Number [facility] [place] [address] PATHOLOGY AND [facility] MEDICINE [address] * Troponin (06/13/2018 9:45 PM [facility]) Only the most recent of 3 results within the time period is included. Troponin <0.30 0.00 - 0.30 ng/mL [facility] Comment: [facility] 0.30 - 1.49 HOSPITAL ng/mlMay indicate increased risk of acute coronary syndrome. >=1.5 ng/ml Consistent with acute myocardial infarction. The diagnostic value of a single normal or non-diagnostic result is questionable.Serial samples at 2-6 hour intervals are required to rule out acute myocardial injury. Specimen Blood Performing Organization Address City/[facility]/Zipcode Phone Number [facility] DEPARTMENT OF [address] [place] [address] PATHOLOGY AND [facility] MEDICINE [facility] [address] [place] [address] HOSPITAL * Gram stain (06/13/2018 7:20 PM [facility]) [facility] Gram stain No WBC's [facility] result Many Gram negative rods [facility] Comment: HOSPITAL Specimen Information Specimen Source: Urine Specimen Site: Clean catch Specimen Urine Performing Organization Address [facility] Phone Number [facility] [place] [address] PATHOLOGY AND [facility] MEDICINE [facility] [address] [place] [address] HOSPITAL * Urine culture (06/13/2018 7:20 PM [facility]) [facility] Urine culture Mixed jessie 10-5 col/cc [facility] isolate Comment: [facility] Specimen Information HOSPITAL Specimen Source: Urine Specimen Site: Clean catch Specimen Urine Performing Organization Address [facility] Phone Number [facility] DEPARTMENT OF [address] [place] [address] PATHOLOGY AND [facility] MEDICINE [facility] [address] [place] [address] HOSPITAL * ECG 12 lead (06/13/2018 6:53 PM [facility]) [facility] Ventricular 94 [facility] MUSE rate Atrial rate 94 [facility] MUSE UT interval 148 [facility] QRSD interval 82 [facility] M[facility] QT interval 350 [facility] QTC interval 437 [facility] P axis 1 38 [facility] M[facility] QRS axis 1 -15 [facility] M[facility] T wave axis -49 [facility] EKG impression Normal sinus [facility] MUSE rhythm-Nonspecific T wave abnormality-Abnormal ECG-No previous ECGs available- Specimen Narrative Performed At Performing Organization Address [facility] Phone Number [address] [place] [address] * XR Chest 1 Vw (06/13/2018 6:49 PM [facility]) Specimen Narrative Performed At EXAMINATION:[facility]ST 1 [facility]: generalized weakness COMPARISON:PA chest x-ray performed 06/13/2018, 17:22 IMPRESSION: Confirmation of a retrocardiac opacity which is most suggestive of a moderately sized hiatal hernia. Otherwise no focal or confluent airspace consolidation is seen to suggest acute pneumonia. No sizable pleural effusion. No pneumothorax identified. No acute osseous abnormalities are visualized. Mild thoracic spondylosis noted. [id number] Procedure Note Hm Interface, Radiology Results Incoming - 06/13/2018 7:05 PM [facility]IENT SERVICES EXAMINATION: XR CHEST 1 VW CLINICAL HISTORY: generalized weakness COMPARISON: PA chest x-ray performed 06/13/2018, 17:22 IMPRESSION: Confirmation of a retrocardiac opacity which is most suggestive of a moderately sized hiatal hernia. Otherwise no focal or confluent airspace consolidation is seen to suggest acute pneumonia. No sizable pleural effusion. No pneumothorax identified. No acute osseous abnormalities are visualized. Mild thoracic spondylosis noted. [facility]-[id number] Performing Organization Address City/State/Zipcode Phone Number [facility] [address] [place] [address] * Respiratory pathogen panel (06/13/2018 6:30 PM [facility] CLIENT SERVICES) Respiratory Positive for Parainfluenza 3 [facility] pathogen panel virus [facility] Negative for all other pathogens tested: Negative for Adenovirus Negative for Coronavirus HKU1 Negative for Coronavirus NL63 Negative for Coronavirus 229E Negative for Coronavirus OC43 Negative for Human Metapneumovirus Negative for Rhinovirus/Enterovirus Negative for Influenza A Negative for Influenza A/H1 Negative for Influenza A/H3 Negative for Influenza A/H1-2009 Negative for Influenza B Negative for Parainfluenza Virus 1 Negative for Parainfluenza Virus 2 Negative for Parainfluenza Virus 4 Negative for Respiratory Syncytial Virus Negative for Bordetella pertussis Negative for Chlamydophila pneumoniae Negative for Mycoplasma pneumoniae This real-time PCR assay detects the presence of nucleic acids (RNA or DNA) for the respiratory pathogens listed. A result of "Not-detected" does not exclude the possibility of the presence of one or more pathogens at concentrations less than the detectable limits of the assay. (A) Comment: Specimen Information Specimen Source: Nares Specimen Site: Right Specimen Nares - Right Performing Organization Address City/[facility]/Zipcode Phone Number [facility] DEPARTMENT OF [address] [place] [address] PATHOLOGY AND GENOMIC MEDICINE [address] * Urinalysis screen and microscopy, with reflex to culture (06/13/2018 6:30 PM [facility] CLIENT SERVICES) Pathologist [facility] Specimen site Clean catch [facility] Color, UA Red [facility] Appearance, UA Cloudy [facility] Specific 1.023 1.001 - 1.035 [facility] gravity, [facility] pH, UA 5.0 5.0 - 8.5 [facility] Protein, UA 2+ (A) Negative [facility] Glucose, UA Negative Negative [facility] Ketones, UA 1+ (A) Negative [facility] Bilirubin, UA Positive@UBIL (A) Negative [facility] Blood, UA Negative Negative [facility] Nitrite, UA Negative Negative [facility] Urobilinogen, 4.0 (A) <2.0 [facility] Leukocyte Moderate (A) Negative [facility] Epithelial >20 /HPF [facility] WBC, UA 47 (H) 0 - 4 /HPF [facility] RBC, UA 4 0 - 5 /HPF [facility] Bacteria, UA Many (A) None seen [facility] Yeast, UA None seen [facility] Yeast with None seen [facility] Amorphous Moderate [facility] crystals [facility] Hyaline casts, >20 (A) /LPF [facility] Specimen Urine Performing Organization Address City/[facility]/Zipcode Phone Number [facility] DEPARTMENT OF [address] [place] [address] PATHOLOGY AND GENOMIC MEDICINE [address] * Partial thromboplastin time, activated (06/13/2018 6:30 PM [facility] CLIENT SERVICES) [facility] PTT 30.1 23.0 - 36.0 sec [facility] Comment: [facility] PTT therapeutic range for HOSPITAL unfractionated heparin is 61.0-112.0 seconds which corresponds to Anti-Xa 0.3-0.7 U/ml. Specimen Blood Performing Organization Address City/State/Zipcode Phone Number [facility] DEPARTMENT OF [address] [place] [address] PATHOLOGY AND [facility] MEDICINE [address] * Prothrombin time with INR (06/13/2018 6:30 PM [facility] CLIENT SERVICES) Pathologist [facility] Prothrombin 13.7 11.5 - 14.5 sec [facility] INR 1.1 [facility] Comment: [facility] International Normalized HOSPITAL Ratio (INR) is a therapeutic monitoring tool for patients who are stable on oral anticoagulant therapy. An INR of 2.0-3.0 is suggested for deep vein thrombosis/pulmonary embolism. Specimen Blood Performing Organization Address City/[facility] Hospital[place] [address] PATHOLOGY AND [facility] MEDICINE [address] * Comprehensive metabolic panel (06/13/2018 6:30 PM [facility] CLIENT [facility]) Pathologist [facility] Sodium 140 135 - 148 mEq/L [facility] Potassium 3.8 3.5 - 5.0 mEq/L [facility] Chloride 103 98 - 112 mEq/L [facility] CO2 25 24 - 31 mEq/L [facility] Anion gap 12@ANIO 7 - 15 mEq/L [facility] BUN 5 (L) 8 - 23 mg/dL [facility] Creatinine 0.55 0.50 - 0.90 mg/dL [facility] Glucose 121 (H) 65 - 99 mg/dL [facility] Calcium 9.9 8.8 - 10.2 mg/dL [facility] Protein 5.5 (L) 6.3 - 8.3 g/dL [facility] Comment: [facility] 4.6-7.0 g/dL 1 week 4.4-7.6 g/dL 7 months-1year 5.1-7.3 g/dL 1-2 years5.6-7 .5 g/dL >3 years6.0-8 .0 g/dL 18-150 6.3-8.3 g/dL Albumin 2.7 (L) 3.5 - 5.0 g/dL [facility] A/G ratio 1.0 0.7 - 3.8 [facility] Alkaline 51 35 - 104 U/L [facility] AST 45 (H) 10 - 35 U/L [facility] ALT 32 5 - 50 U/L [facility] Total bilirubin 0.5 0.0 - 1.2 mg/dL [facility] Specimen Plasma specimen Performing Organization Address City/[facility]/Zipcode Phone Number [facility] DEPARTMENT OF [address] [place] [address] PATHOLOGY AND GENOMIC MEDICINE [address] * ECG ED Preliminary Interpretation - Not an Order (06/13/2018 5:52 PM VP CLIENT SERVICES) Narrative Performed At Eva Alaniz MD 06/14/20189:49 AM ECG ED Preliminary Interpretation - Not an Order Performed by: Eva Alaniz MD Authorized by: Eva Alaniz MD ECG reviewed by ED Physician in the absence of a lcsw: yes Previous ECG: Previous ECG:Unavailable Interpretation: Interpretation: normal Rate: ECG rate:94 ECG rate assessment: normal Rhythm: Rhythm: sinus rhythm Ectopy: Ectopy: none QRS: QRS axis:Normal QRS intervals:Normal Conduction: Conduction: normal ST segments: ST segments:Normal T waves: T waves: normal * XR Chest 1 Vw Portable (06/13/2018 5:26 PM [facility] CLIENT SERVICES) Specimen Narrative Performed At EXAMINATION:XR CHEST 1 VW PORTABLE [facility] CLINICAL HISTORY:peripheral edema COMPARISON:None. IMPRESSION: Moderate cardiomegaly. Nonspecific left retrocardiac opacity may be due to a hiatal hernia. Diagnostic 2 view chest recommended for further evaluation. Pulmonary vasculature is normal. No pleural effusion or pneumothorax. Undulation of the right hemidiaphragm. Degenerative changes in the spine. Bones are demineralized. [facility]-[id number] Procedure Note Interface, Radiology Results Incoming - 06/13/2018 5:49 PM [facility] CLIENT SERVICES EXAMINATION: XR CHEST 1 VW PORTABLE CLINICAL HISTORY: peripheral edema COMPARISON: None. IMPRESSION: Moderate cardiomegaly. Nonspecific left retrocardiac opacity may be due to a hiatal hernia. Diagnostic 2 view chest recommended for further evaluation. Pulmonary vasculature is normal. No pleural effusion or pneumothorax. Undulation of the right hemidiaphragm. Degenerative changes in the spine. Bones are demineralized. [facility]-[id number] Performing Organization Address City/State/Zipcode Phone Number [facility] [address] [place] [address] after 11/10/2017 Insurance Type Payer Benefit Subscriber ID Effective Phone Address Plan / Dates Group HMO [employer] CIGNA xxxxxxxx [id number] [employer]I resent NG HMO MCR ADV Advance Directives Patient has advance care planning documents, and code status on file. For more i nformation, please contact: Anibal Dee [address] [place] [address] Date Inactivated Comments Code Status Date Activated 06/20/2018 9:22 PM Full Code 06/13/2018 11:29 PM Code Status decision reached by: Patient
--- OUTSIDE RECORDS SUMMARY | 2018-11-11 09:50 | XMS REPORT ---
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 Allergies, Adverse Reactions, Alerts Allergy Name Allergy Type Status Severity Reaction(s) Onset Date Inactive Date Treating Clinician Comments No Known Allergies DA Active U 2015-05-11 00:00:00 Medications This patient has no known medications. Encounters Start Date/Time End Date/Time Encounter Type Admission Type Attending Clinicians Care Facility Care Department Encounter ID 2018-08-18 08:45:00 2018-08-18 08:45:00 Outpatient [facility] [id number] Results Test Description Test Time Test Comments Text Results Atomic Results Result Comments URINALYSIS COMPLETE 2018-06-10 11:11:00 UA COLOR (test code=COLU) DARK YELLOW YELLOW UA APPEARANCE (test code=APPU) SLIGHTLY CLOUDY CLEAR UA GLUCOSE DIPSTICK (test code=DGLUU) 50 (Trace) mg/dL NEGATIVE UA BILIRUBIN DIPSTICK (test code=BILU) NEGATIVE mg/dL NEGATIVE UA KETONE DIPSTICK (test code=KETU) 20 (Small) mg/dL NEGATIVE UA SPECIFIC GRAVITY (test code=SGU) 1.023 1.001-1.035 UA BLOOD DIPSTICK (test code=LORRI) Negative NEGATIVE UA PH DIPSTICK (test code=JOSEPHINE) 5.0 5.0-8.0 UA PROTEIN DIPSTICK (test code=PROU) 30 (1+) mg/dL NEGATIVE UA UROBILINIOGEN DIPSTICK (test code=URO) 1 mg/dL (1+) mg/dL 0.0-0.2 UA NITRITE DIPSTICK (test code=JORGE) NEGATIVE NEGATIVE UA LEUKOCYTE ESTERASE W REFLEX (test code=LEUUR) 2+ NEGATIVE UA WBC (test code=WBCU) 21-50 #/HPF 0-5 UA RBC (test code=RBCU) >20 #/HPF 0-5 UA EPITHELIAL CELLS (test code=EPIU) MANY per HPF FEW UA MUCUS (test code=MUCU) MANY #/LPF FEW Urine Source? Clean CatchURINALYSIS [id number] 11:02:00* Test Item Value Reference Range Comments UA COLOR (test code=COLU) YELLOW UA APPEARANCE (test code=APPU) SLIGHTLY CLOUDY CLEAR UA GLUCOSE DIPSTICK (test code=DGLUU) 50 (Trace) mg/dL NEGATIVE UA BILIRUBIN DIPSTICK (test code=BILU) NEGATIVE mg/dL NEGATIVE UA KETONE DIPSTICK (test code=KETU) 20 (Small) mg/dL NEGATIVE UA SPECIFIC GRAVITY (test code=SGU) 1.023 1.001-1.035 UA BLOOD DIPSTICK (test code=LORRI) Negative NEGATIVE UA PH DIPSTICK (test code=JOSEPHINE) 5.0 5.0-8.0 UA PROTEIN DIPSTICK (test code=PROU) 30 (1+) mg/dL NEGATIVE UA UROBILINIOGEN DIPSTICK (test code=URO) mg/dL NEGATIVE UA NITRITE DIPSTICK (test code=JORGE) NEGATIVE NEGATIVE UA LEUKOCYTE ESTERASE W REFLEX (test code=LEUUR) 2+ NEGATIVE UA WBC (test code=WBCU) per HPF 0-5 Urine Source? Clean CatchB-TYPE NATRIURETIC [id number] 09:33:00* Test Item Value Reference Range Comments B-TYPE NATRIURETIC PEPTIDE (test code=BNP) 20.50 pgram/mL 0-100 - XR CHEST 1 [id number] 07:55:00 FAX: Cheo Otero [phone] [place]: B St: [facility] FAX: Bowen Cordoba DO Name: LINDSAY SHEN [facility] : 1950 Age/S: 67/F Emil Perry gregory Unit #: [id number] Loc: [place] [address] Phys: Bowen Cordoba DO Acct: [id number] Dis Date: Status: REG ER PHONE #: [phone] Exam Date: 06/10/2018 0750 FAX #: [phone] Reason: weakness EXAMS: CPT CODE: [id number] XR CHEST 1 V 53297 EXAM: Chest X-ray, 1 view; CLINICAL HISTORY: Weakness, nausea; FINDINGS: The lungs are clear, no infiltrates, no edema; no effusions; no pneumothorax; normal cardiomediastinal silhouette. No significant change compared with a study from June 06, 2016. IMPRESSION: Normal chest x-ray. at 0755 Reported and signed by: Chapo Carr M.D. CC: Cheo Rivera; Bowen Cordoba DO Technologist: RT QUINTON(Ignacio) Trnscrd Date/Time/By: 06/10/2018 (0755) : By: [email or web address] Orig Print D/T: S: 06/10/2018 (0758) PAGE 1 Signed Report BASIC METABOLIC [id number] 07:18:00* Test Item Value Reference Range Comments SODIUM (test code=NA) 140 mmol/L 136-145 POTASSIUM (test code=K) 3.5 mmol/L 3.5-5.1 CHLORIDE (test code=CL) 104.0 mmol/L 98-107 CARBON DIOXIDE (test code=CO2) 26.0 mmol/L 21-32 ANION GAP (test code=GAP) 13.5 10-20 GLUCOSE (test code=GLU) 134 mg/dL 74-106 BLOOD UREA NITROGEN (test code=BUN) 6 mg/dL 7-18 GLOMERULAR FILTRATION RATE (test code=GFR) > 60 mL/min >=60 Estimated GFR by using Modified MDRD formula.Chronic kidney disease is defined as either kidney damageor GFR <60 mL/min/1.73 m2 for >3 months. CREATININE (test code=CREAT) 0.40 mg/dL 0.55-1.02 Note change in reference range due to change in reagent. BUN/CREATININE RATIO (test code=BUN/CREA) 13.8 10-20 CALCIUM (test code=CA) 9.5 mg/dL 8.5-10.1 HEPATIC FUNCTION [id number] 07:18:00* Test Item Value Reference Range Comments TOTAL PROTEIN (test code=PROT) 5.7 gram/dL 6.4-8.2 ALBUMIN (test code=ALB) 2.6 g/dL 3.4-5.0 GLOBULIN (test code=GLOB) 3.1 gram/dL 2.7-4.2 ALBUMIN/GLOBULIN RATIO (test code=A/G) 0.8 0.75-1.50 BILIRUBIN TOTAL (test code=BILT) 0.50 mg/dL 0.0-1.0 BILIRUBIN DIRECT (test code=BILD) 0.18 mg/dL 0.0-0.20 SGOT/AST (test code=AST) 54 IUnit/L 15-37 SGPT/ALT (test code=ALT) 46 IUnit/L 12-78 ALKALINE PHOSPHATASE TOTAL (test code=ALKP) 58 IUnit/L 45-117 Note change in reference range due to change in reagent. [id number] 07:18:00* Test Item Value Reference Range Comments LIPASE (test code=LIP) 55 U/L 73.0-393.0 HCG SERUM [id number] 07:18:00* Test Item Value Reference Range Comments HCG SERUM QUAL (test code=HCGQL) NEGATIVE NEGATIVE This HCGQL test is NOT applicable for MALE patients.Check with nurse about probable order error.If Tumor Marker Test needed, nurse should order test "HCGTU"(Test #550.09704) BASIC METABOLIC [id number] 07:10:00* Test Item Value Reference Range Comments SODIUM (test code=NA) 140 mmol/L 136-145 POTASSIUM (test code=K) 3.5 mmol/L 3.5-5.1 CHLORIDE (test code=CL) 104.0 mmol/L 98-107 CARBON DIOXIDE (test code=CO2) mmol/L 21-32 ANION GAP (test code=GAP) 10-20 GLUCOSE (test code=GLU) mg/dL 74-106 BLOOD UREA NITROGEN (test code=BUN) mg/dL 7-18 GLOMERULAR FILTRATION RATE (test code=GFR) mL/min >=60 CREATININE (test code=CREAT) mg/dL 0.55-1.02 BUN/CREATININE RATIO (test code=BUN/CREA) 10-20 CALCIUM (test code=CA) mg/dL 8.5-10.1 HEPATIC FUNCTION [id number] 07:10:00* Test Item Value Reference Range Comments TOTAL PROTEIN (test code=PROT) gram/dL 6.4-8.2 ALBUMIN (test code=ALB) g/dL 3.4-5.0 GLOBULIN (test code=GLOB) gram/dL 2.7-4.2 ALBUMIN/GLOBULIN RATIO (test code=A/G) 0.75-1.50 BILIRUBIN TOTAL (test code=BILT) mg/dL 0.0-1.0 BILIRUBIN DIRECT (test code=BILD) mg/dL 0.0-0.20 SGOT/AST (test code=AST) IUnit/L 15-37 SGPT/ALT (test code=ALT) IUnit/L 12-78 ALKALINE PHOSPHATASE TOTAL (test code=ALKP) IUnit/L 45-117 [id number] 07:10:00* Test Item Value Reference Range Comments LIPASE (test code=LIP) U/L 73.0-393.0 HCG SERUM [id number] 07:10:00* Test Item Value Reference Range Comments HCG SERUM QUAL (test code=HCGQL) NEGATIVE NEGATIVE This HCGQL test is NOT applicable for MALE patients.Check with nurse about probable order error.If Tumor Marker Test needed, nurse should order test "HCGTU"(Test #550.59365) BASIC METABOLIC [id number] 07:09:00* Test Item Value Reference Range Comments SODIUM (test code=NA) 140 mmol/L 136-145 POTASSIUM (test code=K) 3.5 mmol/L 3.5-5.1 CHLORIDE (test code=CL) 104.0 mmol/L 98-107 CARBON DIOXIDE (test code=CO2) mmol/L 21-32 ANION GAP (test code=GAP) 10-20 GLUCOSE (test code=GLU) mg/dL 74-106 BLOOD UREA NITROGEN (test code=BUN) mg/dL 7-18 GLOMERULAR FILTRATION RATE (test code=GFR) mL/min >=60 CREATININE (test code=CREAT) mg/dL 0.55-1.02 BUN/CREATININE RATIO (test code=BUN/CREA) 10-20 CALCIUM (test code=CA) mg/dL 8.5-10.1 HEPATIC FUNCTION [id number] 07:09:00* Test Item Value Reference Range Comments TOTAL PROTEIN (test code=PROT) gram/dL 6.4-8.2 ALBUMIN (test code=ALB) g/dL 3.4-5.0 GLOBULIN (test code=GLOB) gram/dL 2.7-4.2 ALBUMIN/GLOBULIN RATIO (test code=A/G) 0.75-1.50 BILIRUBIN TOTAL (test code=BILT) mg/dL 0.0-1.0 BILIRUBIN DIRECT (test code=BILD) mg/dL 0.0-0.20 SGOT/AST (test code=AST) IUnit/L 15-37 SGPT/ALT (test code=ALT) IUnit/L 12-78 ALKALINE PHOSPHATASE TOTAL (test code=ALKP) IUnit/L 45-117 [id number] 07:09:00* Test Item Value Reference Range Comments LIPASE (test code=LIP) U/L 73.0-393.0 HCG SERUM [id number] 07:09:00* Test Item Value Reference Range Comments HCG SERUM QUAL (test code=HCGQL) NEGATIVE CBC W/O [id number] 07:03:00* Test Item Value Reference Range Comments WHITE BLOOD CELL (test code=WBC) 4.9 K/mm3 4.5-12.5 RED BLOOD CELL (test code=RBC) 4.28 mill/mm3 3.7-5.2 HEMOGLOBIN (test code=HGB) 12.0 gram/dL 11.5-15.5 HEMATOCRIT (test code=HCT) 38.8 % 36.0-46.0 MEAN CELL VOLUME (test code=MCV) 90.7 fL 80-98 MEAN CELL HGB (test code=MCH) 28.0 picogram 27.0-33.0 MEAN CELL HGB CONCETRATION (test code=MCHC) 30.9 gram/dL 33.0-36.0 RED CELL DISTRIBUTION WIDTH (test code=RDW) 13.1 % 11.6-16.2 PLATELET COUNT (test code=PLT) 218 K/mm3 150-450 MEAN PLATELET VOLUME (test code=MPV) 10.8 fL 6.7-11.0 CBC W/O [id number] 07:00:00* Test Item Value Reference Range Comments WHITE BLOOD CELL (test code=WBC) K/mm3 4.5-12.5 RED BLOOD CELL (test code=RBC) mill/mm3 3.7-5.2 HEMOGLOBIN (test code=HGB) 12.0 gram/dL 11.5-15.5 HEMATOCRIT (test code=HCT) 38.8 % 36.0-46.0 MEAN CELL VOLUME (test code=MCV) fL 80-98 MEAN CELL HGB (test code=MCH) picogram 27.0-33.0 MEAN CELL HGB CONCETRATION (test code=MCHC) gram/dL 33.0-36.0 RED CELL DISTRIBUTION WIDTH (test code=RDW) % 11.6-16.2 PLATELET COUNT (test code=PLT) K/mm3 150-450 MEAN PLATELET VOLUME (test code=MPV) fL 6.7-11.0
[2018-11-11 12:10] VITALS: BP 126/68
== END | disposition home or self-care (01) ==
LOC: OR 09:40
PROVIDERS: ATTEND Internal Medicine
DX: K29.70 Gastritis, unspecified, without bleeding (principal); K21.9 Gastro-esophageal reflux disease without esophagitis; R63.4 Abnormal weight loss; I10 Essential (primary) hypertension; M19.90 Unspecified osteoarthritis, unspecified site; F32.9 Major depressive disorder, single episode, unspecified; F41.9 Anxiety disorder, unspecified; Z01.810 Encounter for preprocedural cardiovascular examination; Z68.38 Body mass index [BMI] 38.0-38.9, adult
CPT/HCPCS: 43239; 93005; J2001; J2704; J3010